=== PATIENT | female | born 1945 | race Caucasian/White ===

== ENCOUNTER → 2019-05-12 15:40 | Outpatient (CLI) | payer OTHER ==
[~2019-05-12 15:40] MED LIST: COZAAR100 MG; LIPITOR40 MG; NEXIUM40 MG/PACK; ZANTAC300 MG; ZOLOFT25 MG
== END | disposition home or self-care (01) ==
LOC: NUCLEAR 15:40
DX: I82.403 Acute embolism and thrombosis of unspecified deep veins of lower extremity, bilateral (principal)

== ENCOUNTER 2020-08-03 13:56 | Outpatient (CLI) | payer OTHER | END 2020-08-03 16:01 | disposition home or self-care (01) | LOC: OFIC 805 13:56 | PROVIDERS: ATTEND Otolaryngology Otology & Neurotology | DX: J30.89 Other allergic rhinitis (principal); J34.2 Deviated nasal septum; R49.0 Dysphonia ==

== ENCOUNTER → 2023-11-06 10:14 | Outpatient (CLI) | payer OTHER | END | disposition home or self-care (01) | LOC: NUCLEAR 10:14 | PROVIDERS: ATTEND Internal Medicine | DX: I82.409 Acute embolism and thrombosis of unspecified deep veins of unspecified lower extremity (principal) ==